=== PATIENT | female | born 1955 | race Caucasian/White ===

== ENCOUNTER 2023-07-04 13:50 | Emergency (ER) | payer SELFPAY ==
[2023-07-04] VITALS (85 sets, daily range): BP systolic 60–166; BP diastolic 41–104; PULSE 87–109; RESP 14–31; TEMP 37.1; O2SAT 81–95; BMI 19.7
--- NOTE | 2023-07-04 14:00 | ED_ITS ---
HPI - General Adult General Chief complaint: Abdominal Pain Stated complaint: NAUSEAU Time Seen by Provider: 07/04/23 14:00 History of Present Illness HPI narrative: Patient says emergency department complaining of nausea and vomiting ongoing for 1 week. Patient states she has been dry heaving. She denies any coffee grounds or hematemesis. She states she has abdominal pain and 3 days her abdomen has swollen and is making her feel short of breath. She has a history of alcoholism. Drinks one 5th daily for the last 3 years. she has not had any alcohol in the last 3 days. She states she has hemorrhoids causing her discomfort.She states she's had some red blood per rectum in the last 3 days. She denies any melena. She denies any history of fall or trauma. Patient denies any fever, or chills. She states that she had pancreatitis 20 years ago. She denies any flank pain, hematuria, dysuria. Says she has not had a bowel movement in the last 3 days. She denies any tremors, or mentation changes. Related Data Allergies Allergy/AdvReac Type Severity Reaction Status Date / Time No Known Drug Allergies Allergy Verified 07/04/23 14:11 Review of Systems ROS Status of ROS 10 or more systems reviewed and unremarkable except as noted in history and below [facility] Social History Smoking status: Current every day smoker Exam Narrative Exam Narrative: Nurses notes and vital signs reviewed and patient is not hypoxic. General: Chronically ill, cachectic,and in no apparent distress. Skin: Warm, dry, no pallor noted. severe Jaundiced Head: Normocephalic, atraumatic. Neck: Supple, non-tender. Eye: Pupils are equal, round and EOMI. Severe scleral icterus. Ears, Nose, Mouth, and Throat: TM clear, no posterior oropharynx erythema or nasal mucosal hypertrophy, uvula is mid-line Oral mucosa is dry Cardiovascular: Regular Rate and Rhythm without murmur, gallop or rub. Respiratory: No accessory muscle use or respiratory distress. Lungs are clear to auscultation, no wheezing, rales or rhonchi Chest Wall: no tenderness Back: No midline thoracic or lumbar vertebral tenderness. No CVA tenderness Musculoskeletal: normal ROM, no calf or popliteal tenderness, no lower extremity edema/swelling GI: Abdomen is soft, distended w ascites, distant bowel sounds. mild epigastric tenderness to palpation. No rebound, guarding, or rigidity noted. Rectal: Nonthrombosed hemorrhoids noted, maroon colored mucus specimen, stool present. Neurological: A&O x4. No cranial nerve dysfunction observed. No truncal ataxia. Moves all extremities. Psychiatric: Cooperative and interactive. Normal mood and affect. Constitutional Vital Signs, click to edit/add: Last Vital Signs Temp 98.7 F 07/04/23 14:01 Pulse 94 H 07/04/23 18:51 Resp 15 07/04/23 18:51 BP 71/54 L 07/04/23 18:51 Pulse Ox 91 L 07/04/23 18:51 O2 Del Method Room Air, Nasal Cannula 07/04/23 17:58 O2 Flow Rate 2 07/04/23 17:58 Course Vital Signs Vital signs: Vital Signs Temperature 98.7 F 07/04/23 14:01 Pulse Rate 109 H 07/04/23 14:01 Respiratory Rate 22 07/04/23 14:01 Blood Pressure 100/50 07/04/23 14:01 Pulse Oximetry 95 07/04/23 14:01 Oxygen Delivery Method Room Air 07/04/23 14:01 Temperature 98.7 F 07/04/23 14:01 Pulse Rate 94 H 07/04/23 18:51 Respiratory Rate 15 07/04/23 18:51 Blood Pressure 71/54 L 07/04/23 18:51 Pulse Oximetry 91 L 07/04/23 18:51 Oxygen Delivery Method Room Air, Nasal Cannula 07/04/23 17:58 Oxygen Delivery Flow Rate 2 07/04/23 17:58 Medical Decision Making MDM Narrative Medical decision making narrative: Patient was given 2 L of normal saline. 40 mEq of potassium by mouth. Remained hypotensive, and banana bag was started and was started on Levophed 12 mcg/m and increased to 14 mcg/min. She remains hypotensive she was started on albumin 25 g IV. Patient was given 50 mEq of potassium bicarbonate by mouth to treat hypokalemia. She had 30 g of lactulose to treat the ammonia. Chest x-rays unremarkable. Brain ct is unremarkable. CT scan abdomen and pelvis demonstrates ascites, cirrhosis, and Ascending Colon wall thickening. gb us Does not show any biliary obstruction.Patient was pancultured, urinalysis is still pending and she was given Rocephin prophylactically. Her lactic acid has normalized. Patient was advised to be transferred to a tertiary care center. However, the patient and the family wanted me to try a local center. He stated they would prefer to go to on license of [facility]. [facility] does have a gastrointestinal specialist. I discussed the patient with the hospitalist and the gastrointestinal specialist Dr. Engel who advised the patient would be best taken care of at a tertiary care center. The patient's preference of Hospital is [facility]. We have placed on a phone call to the blade filer and at the time of this dictation the blade filer has not called back yet. The patient will be signed out at the end of my shift to Dr. Cao awaiting a phone call from [facility] to accept the patient. Patient's hemoglobin is 8.7. I do not have any previous hemoglobin level. A type and cross will be ordered. Medical Records Medical records reviewed: Yes I reviewed the patient's medical records Lab Data Lab results reviewed: Yes I reviewed the patient's lab results Labs: Lab Results 07/04/23 07/04/23 07/04/23 Range/Units 14:22 14:32 14:45 WBC 12.5 H (4.0-11.0) 10^3/uL RBC 2.55 L (4.20-5.40) 10^6/uL Hgb 8.7 L (12.0-16.0) g/dL Hct 24.7 L (36.0-48.0) % MCV 96.9 (81.0-99.0) fL MCH 34.1 H (26.7-34.0) pg MCHC 35.2 (29.9-35.2) g/dL RDW 15.4 H (11.0-15.0) % Plt Count 123 L (150-450) 10^3/uL MPV 12.2 (9.5-13.5) fL Neut % (Auto) 84.2 H (43.0-75.0) % Lymph % (Auto) 4.5 L (20.5-60.0) % [place] % (Auto) 9.9 (1.7-12.0) % Eos % (Auto) 0.4 L (0.9-7.0) % Baso % (Auto) 0.2 (0.2-2.0) % Neut # (Auto) 10.5 H (1.4-6.5) 10^3/uL Lymph # (Auto) 0.6 L (1.2-3.8) 10^3/uL [place] # (Auto) 1.2 H (0.3-0.8) 10^3/uL Eos # (Auto) 0.1 (0.0-0.7) 10^3/uL Baso # (Auto) 0.0 (0.0-0.1) 10^3/uL Abs Immat Gran (auto) 0.10 H (0.00-0.03) 10^3/uL Imm/Tot Granulo (auto) 0.8 H (0.0-0.5) % PT 16.8 H (9.0-11.6) sec INR 1.63 APTT 41.7 H* (22.3-36.2) sec Sodium 130 L (136-145) mmol/L Potassium 3.2 L (3.5-5.1) mmol/L Chloride 90 L (98-107) mmol/L Carbon Dioxide 24.3 (21.0-32.0) mmol/L Anion Gap 18.9 BUN 37.0 H (7.0-18.0) mg/dL Creatinine 0.99 (0.55-1.02) mg/dL Est GFR ( Amer) >60 (>=60) Est GFR (Non-Af Amer) 56 L (>=60) BUN/Creatinine Ratio 37.4 Glucose 83 (74-106) mg/dL Lactate 3.3 H* (0.4-2.0) mmol/L Calcium 8.3 L (8.5-10.1) mg/dL Total Bilirubin 24.4 H* (0.2-1.0) mg/dL AST 176 H (15-37) U/L ALT 35 (14-59) U/L Alkaline Phosphatase 199 H (46-116) U/L Ammonia 50 H* (11-32) umol/L Total Protein 6.6 (6.4-8.2) g/dL Albumin 2.0 L (3.4-5.0) g/dL Globulin 4.6 g/dL Albumin/Globulin Ratio 0.4 Lipase 1114.0 H* (73.0-393.0) U/L Stool Occult Blood Positive A Salicylates <2.8 (<=19.9) mg/dL Acetaminophen <2.0 L (10.0-30.0) ug/mL Ethanol Quant <3 mg/dL 07/04/23 Range/Units 17:42 WBC (4.0-11.0) 10^3/uL RBC (4.20-5.40) 10^6/uL Hgb (12.0-16.0) g/dL Hct (36.0-48.0) % MCV (81.0-99.0) fL MCH (26.7-34.0) pg MCHC (29.9-35.2) g/dL RDW (11.0-15.0) % Plt Count (150-450) 10^3/uL MPV (9.5-13.5) fL Neut % (Auto) (43.0-75.0) % Lymph % (Auto) (20.5-60.0) % [place] % (Auto) (1.7-12.0) % Eos % (Auto) (0.9-7.0) % Baso % (Auto) (0.2-2.0) % Neut # (Auto) (1.4-6.5) 10^3/uL Lymph # (Auto) (1.2-3.8) 10^3/uL [place] # (Auto) (0.3-0.8) 10^3/uL Eos # (Auto) (0.0-0.7) 10^3/uL Baso # (Auto) (0.0-0.1) 10^3/uL Abs Immat Gran (auto) (0.00-0.03) 10^3/uL Imm/Tot Granulo (auto) (0.0-0.5) % PT (9.0-11.6) sec INR APTT (22.3-36.2) sec Sodium (136-145) mmol/L Potassium (3.5-5.1) mmol/L Chloride (98-107) mmol/L Carbon Dioxide (21.0-32.0) mmol/L Anion Gap BUN (7.0-18.0) mg/dL Creatinine (0.55-1.02) mg/dL Est GFR ( Amer) (>=60) Est GFR (Non-Af Amer) (>=60) BUN/Creatinine Ratio Glucose (74-106) mg/dL Lactate 1.8 (0.4-2.0) mmol/L Calcium (8.5-10.1) mg/dL Total Bilirubin (0.2-1.0) mg/dL AST (15-37) U/L ALT (14-59) U/L Alkaline Phosphatase (46-116) U/L Ammonia (11-32) umol/L Total Protein (6.4-8.2) g/dL Albumin (3.4-5.0) g/dL Globulin g/dL Albumin/Globulin Ratio Lipase (73.0-393.0) U/L Stool Occult Blood Salicylates (<=19.9) mg/dL Acetaminophen (10.0-30.0) ug/mL Ethanol Quant mg/dL Imaging Data CT scan - abdomen: Radiologist's impression: Patient Name: SOHAM OSORIO MRN: [facility]:[id number] date: 1955 Sex: F Assigned Patient Location: ED.MAIN Current Patient Location: ER Accession/Order Number: [id number] Exam Date: 07/04/2023 15:05 Report Date: 07/04/2023 15:29 At the request of: COLT ESPINAL Procedure: CT abdomen pelvis wo con EXAM: CT abdomen pelvis wo con HISTORY: abd pain, ascites COMPARISON: None. TECHNIQUE: Axial CT images were obtained of the abdomen and pelvis without intravenous contrast. Multiplanar reconstructions were performed. ABDOMEN/PELVIS FINDINGS: Lower Chest: Bibasilar atelectasis or scarring is present. Liver: The liver is enlarged with severe hepatic steatosis present and heterogeneous density. Biliary/Gallbladder: Unremarkable. Pancreas: Unremarkable. Spleen: Unremarkable. Adrenal Glands: Unremarkable. Kidneys: Unremarkable. Gastrointestinal/Peritoneum: The ascending colon is mildly thickened. There are no dilated loops of bowel. The appendix is unremarkable. There is a moderate volume of ascites. Vascular: Moderate scattered atherosclerotic calcifications are present. Lymph Nodes: No enlarged lymph nodes by CT size criteria. Pelvic Organs: Prior hysterectomy. Bladder: Unremarkable. Bones: No acute osseous abnormality. Soft tissues: Unremarkable. IMPRESSION: 1. Moderate volume of ascites. 2. Severe hepatic steatosis with heterogeneous density of the liver and hepatomegaly. Further evaluation with a multiphase CT or MRI of the liver is recommended. 3. Mild thickening of the ascending colon, possibly due to congestive hepatopathy or infectious/inflammatory colitis. Electronically authenticated by: ABDON BRYSON Date: 07/04/2023 15:29 Critical Care Time Critical Care Time Critical Care Time: Yes Total Critical Care Time: 50 Attestation: Critical Care Time: 50 minutes, critical care time is separate from any procedures that are performed. The following was considered in the determination of critical care but not limited to the level medical decision-making, intensive cardiac and/or respiratory monitor, frequent vital sign monitoring, evaluation of laboratory studies, evaluation of a radiographic studies, oxygen monitoring and constant monitoring. Discharge Plan Discharge Chief Complaint: Abdominal Pain Clinical Impression: Abdominal ascites, Hyperbilirubinemia, Alcoholic cirrhosis, Hematochezia, Hypotension, Acute hepatic failure, Acute hypokalemia Patient Disposition: Still a Patient Referrals: Physician,Non-Staff, MD [Primary Care Provider] - 1 week
--- NOTE | 2023-07-04 14:13 | CT_ITS ---
The [address] [address] Patient Name: SOHAM OSORIO MRN: [id number] date: 1955 Sex: F Assigned Patient Location: ED.MAIN Current Patient Location: Accession/Order Number: [id number] Exam Date: 07/04/2023 15:05 Report Date: 07/04/2023 15:23 At the request of: COLT ESPINAL Procedure: CT head/brain wo con CT head/brain wo con, 07/04/2023 3:05 PM EDT, OH001 INDICATION: mental status acute headache. COMPARISON: None. TECHNIQUE: CT images of the brain from skull base to vertex, including portions of the face and sinuses, were obtained without contrast. Supplemental 2D reformatted images were generated and reviewed as needed. Dose reduction techniques were achieved by using automated exposure control and/or adjustment of mA and/or kV according to patient size and/or use of iterative reconstruction technique. FINDINGS: The ventricles and sulci are prominent consistent with atrophy . There are nonspecific foci of decreased attenuation within the white matter likely representing chronic microvascular ischemic change . No mass effect, acute hemorrhage, midline shift, hydrocephalus or exta-axial fluid collection. The basal cisterns are patent. The calvarium appears intact. The visualized paranasal sinuses are clear. The mastoids are clear. CT/CT head/brain wo con IMPRESSION: No CT evidence of acute intracranial abnormality. Electronically authenticated by: PHAM HENDRICKSON Date: 07/04/2023 15:23
--- NOTE | 2023-07-04 14:16 | CT_ITS ---
The [address] [address] Patient Name: SOHAM OSORIO MRN: [id number] date: 1955 Sex: F Assigned Patient Location: ED.MAIN Current Patient Location: ER Accession/Order Number: [id number] Exam Date: 07/04/2023 15:05 Report Date: 07/04/2023 15:29 At the request of: COLT ESPINAL Procedure: CT abdomen pelvis wo con EXAM: CT abdomen pelvis wo con HISTORY: abd pain, ascites COMPARISON: None. TECHNIQUE: Axial CT images were obtained of the abdomen and pelvis without intravenous contrast. Multiplanar reconstructions were performed. ABDOMEN/PELVIS FINDINGS: Lower Chest: Bibasilar atelectasis or scarring is present. Liver: The liver is enlarged with severe hepatic steatosis present and heterogeneous density. Biliary/Gallbladder: Unremarkable. Pancreas: Unremarkable. Spleen: Unremarkable. Adrenal Glands: Unremarkable. Kidneys: Unremarkable. Gastrointestinal/Peritoneum: The ascending colon is mildly thickened. There are no dilated loops of bowel. The appendix is unremarkable. There is a moderate volume of ascites. Vascular: Moderate scattered atherosclerotic calcifications are present. Lymph Nodes: No enlarged lymph nodes by CT size criteria. Pelvic Organs: Prior hysterectomy. Bladder: Unremarkable. Bones: No acute osseous abnormality. Soft tissues: Unremarkable. CT/CT abdomen pelvis wo con IMPRESSION: 1. Moderate volume of ascites. 2. Severe hepatic steatosis with heterogeneous density of the liver and hepatomegaly. Further evaluation with a multiphase CT or MRI of the liver is recommended. 3. Mild thickening of the ascending colon, possibly due to congestive hepatopathy or infectious/inflammatory colitis. Electronically authenticated by: ABDON BRYSON Date: 07/04/2023 15:29
[2023-07-04] MEDS: 0.9 % SODIUM CHLORIDE 1,000 ML 100 ML IV (14:32)
[2023-07-04] MEDS: ONDANSETRON PF 4 MG/2 ML VIAL IV ×2 (14:33→18:39)
[2023-07-04 15:02] LABS: Basophils Percent Auto 0.2 % (0.2-2.0); Eosinophils Absolute Auto 0.1 10^3/uL (0.0-0.7); Eosinophils Percent Auto 0.4 % (0.9-7.0); Hematocrit 24.7 % (36.0-48.0); Hemoglobin 8.7 g/dL (12.0-16.0); Immature Granulocytes Pct Auto 0.8 % (0.0-0.5); Lymphocytes Absolute Auto 0.6 10^3/uL (1.2-3.8); Lymphocytes Percent Auto 4.5 % (20.5-60.0); Mean Corpuscular HGB Conc 35.2 g/dL (29.9-35.2); Mean Corpuscular Hemoglobin 34.1 pg (26.7-34.0); Mean Corpuscular Volume 96.9 fL (81.0-99.0); Mean Platelet Volume 12.2 fL (9.5-13.5); Monocytes Absolute Auto 1.2 10^3/uL (0.3-0.8); Monocytes Percent Auto 9.9 % (1.7-12.0); Neutrophils Absolute Auto 10.5 10^3/uL (1.4-6.5); Neutrophils Percent Auto 84.2 % (43.0-75.0); Platelet Count 123 10^3/uL (150-450); Red Blood Count 2.55 10^6/uL (4.20-5.40); Red Cell Distribution Width 15.4 % (11.0-15.0); White Blood Count 12.5 10^3/uL (4.0-11.0)
[2023-07-04 15:17] LABS: Alanine Aminotransferase 35 U/L (14-59); Albumin Globulin Ratio 0.4; Alkaline Phosphatase 199 U/L (46-116); Anion Gap 18.9; Aspartate Amino Transferase 176 U/L (15-37); BUN Creatinine Ratio 37.4; Calcium 8.3 mg/dL (8.5-10.1); Carbon Dioxide 24.3 mmol/L (21.0-32.0); Chloride 90 mmol/L (98-107); Estimated GFR (African America >60 (>=60); Estimated GFR (Non-African Ame 56 (>=60); Globulin 4.6 g/dL; Glucose 83 mg/dL (74-106); Potassium 3.2 mmol/L (3.5-5.1); Sodium 130 mmol/L (136-145); Total Protein 6.6 g/dL (6.4-8.2)
[2023-07-04 15:19] LABS: Bilirubin Total 24.4 mg/dL (0.2-1.0); Lactate/Lactic Acid 3.3 mmol/L (0.4-2.0)
[2023-07-04 15:19] LABS: Ammonia 50 umol/L (11-32)
--- NOTE | 2023-07-04 15:41 | ECG_ITS ---
The 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
[2023-07-04] MEDS: POTASSIUM BICARBONATE/CIT 25 MEQ TABLET EFF 50 MEQ PO (16:00)
[2023-07-04 16:07] LABS: Occult Blood Positive
[2023-07-04] MEDS: 0.9 % SODIUM CHLORIDE 1,000 ML 1000 ML IV (16:12)
[2023-07-04 16:33] LABS: Acetaminophen <2.0 ug/mL (10.0-30.0); Ethanol <3 mg/dL; Salicylate <2.8 mg/dL (<=19.9)
--- NOTE | 2023-07-04 16:39 | US_ITS ---
[address] [address] Patient Name: SOHAM OSORIO MRN: [id number] date: 1955 Sex: F Assigned Patient Location: ER Current Patient Location: ER Accession/Order Number: [id number] Exam Date: 07/04/2023 16:40 Report Date: 07/04/2023 18:15 At the request of: COLT ESPINAL Procedure: US right upper quadrant EXAM: US right upper quadrant HISTORY: jaundice COMPARISON: CT of the abdomen and pelvis from the same day. TECHNIQUE: Right upper abdominal ultrasound including grayscale and Doppler imaging. FINDINGS: Right/left pleural space: No effusion. Liver: Hepatomegaly, measuring 20 cm. Echogenic liver with coarse echotexture. Enlarged caudate No definite hepatic mass is noted. Enlarged caudate lobe and recanalized prominent focal vein, better seen on the CT of the abdomen and pelvis, may represent cirrhosis. Gallbladder: No gallbladder wall thickening or pericholecystic fluid. No cholelithiasis. Focal tenderness: No right upper quadrant tenderness. Intrahepatic biliary ducts: No intrahepatic biliary duct dilatation. Extra hepatic biliary duct measures 5 mm. Pancreas: Pancreatic head is unremarkable. The remaining pancreas is not well visualized due to overlying bowel gas. Right kidney: Normal cortical echogenicity. No hydronephrosis. The right kidney measures 10.6 cm in length. Aorta: No aneurysm. Peritoneal space: Moderate ascites. Additional findings: None. US/US right upper quadrant IMPRESSION: Hepatomegaly. Echogenic liver with coarse echotexture, representing hepatic steatosis or liver congestion. Enlarged caudate lobe and recanalized prominent focal vein, better seen on the CT of the abdomen and pelvis, may represent cirrhosis. Multiphasic CT or MRI (liver protocol) is recommended for better evaluation of the liver and hepatic vessels. Hepatofugal portal vein flow, can be due to portal hypertension or congestive liver. No intra or extrahepatic biliary ductal dilatation. Moderate ascites. Electronically authenticated by: CHARLEY WHITTEN Date: 07/04/2023 18:15
[2023-07-04] MEDS: NOREPINEPHRINE BITARTRATE 4 MG in DEXTROSE 5 % IN WATER 250 ML 30.48 MG IV (17:01)
[2023-07-04 17:07] LABS: INR 1.63; Prothrombin Time 16.8 sec (9.0-11.6)
[2023-07-04 17:10] LABS: Partial Thromboplastin Time 41.7 sec (22.3-36.2)
[2023-07-04 18:07] LABS: Lactate/Lactic Acid 1.8 mmol/L (0.4-2.0)
[2023-07-04] MEDS: LACTULOSE 10 GM/15 ML SOLUTION 30 GM PO (18:40)
[2023-07-04] MEDS: ALBUMIN HUMAN 25 GM/100 ML PREMIX IV (18:40)
[2023-07-04 19:34] LABS: Clarity Urine CLEAR (CLEAR); Color Urine DK. ORANGE (YELLOW)
[2023-07-04 19:37] LABS: Urine Microscopic Indicated YES
[2023-07-04] MEDS: METRONIDAZOLE/SODIUM CHLORIDE 500 MG/100 ML PREMIX 100 MG IV (19:41)
[2023-07-04 19:47] LABS: Amorphous Sediment Urine MODERATE; Bacteria Urine LARGE #/HPF (NONE SEEN); Cast Seen? NONE SEEN #/LPF (NONE SEEN); Crystals Seen? Seen #/HPF (None Seen); Mucus Urine NONE SEEN (NONE SEEN); RBC Urine 0-2 #/HPF (0-2); Squamous Epithelial Cell Urine FEW #/LPF (NONE/RARE); Urine Culture Indicated YES
--- NOTE | 2023-07-04 20:02 | ED_ITS ---
HPI - Abdominal Pain General Chief Complaint: Abdominal Pain Stated Complaint: NAUSEAU Time Seen by Provider: 07/04/23 14:00 Source: patient Mode of arrival: Wheelchair Limitations: no limitations History of Present Illness HPI narrative: This 67-year-old female was signed out to me at shift change. She presents emergency department for evaluation of abdominal pain with abdominal distention and ascites. She is found to be in acute liver failure. At the time of sign out we're waiting to hear from from medical for transfer. Prior to Dr. Moscoso leaving she spoke to the accepting physician at [facility]. Patient was seen and evaluated. She is awake and alert. She denies any nausea at this time. She is currently on levofed which was increased due to persistant hypotension. I also ordered a type and screen and a unit of PRBCs due to her hypotension, positive occult blood in her stool and anemia. Related Data Allergies Allergy/AdvReac Type Severity Reaction Status Date / Time No Known Drug Allergies Allergy Verified 07/04/23 14:11 [facility] Social History Smoking status: Current every day smoker Exam Constitutional Vital Signs, click to edit/add: Last Vital Signs Temp 98.7 F 07/04/23 14:01 Pulse 96 H 07/04/23 21:06 Resp 25 H 07/04/23 21:06 BP 60/41 L 07/04/23 21:06 Pulse Ox 91 L 07/04/23 21:06 O2 Del Method Room Air, Nasal Cannula 07/04/23 17:58 O2 Flow Rate 2 07/04/23 17:58 Course Vital Signs Vital signs: Vital Signs Temperature 98.7 F 07/04/23 14:01 Pulse Rate 109 H 07/04/23 14:01 Respiratory Rate 22 07/04/23 14:01 Blood Pressure 100/50 07/04/23 14:01 Pulse Oximetry 95 07/04/23 14:01 Oxygen Delivery Method Room Air 07/04/23 14:01 Temperature 98.7 F 07/04/23 14:01 Pulse Rate 96 H 07/04/23 21:06 Respiratory Rate 25 H 07/04/23 21:06 Blood Pressure 60/41 L 07/04/23 21:06 Pulse Oximetry 91 L 07/04/23 21:06 Oxygen Delivery Method Room Air, Nasal Cannula 07/04/23 17:58 Oxygen Delivery Flow Rate 2 07/04/23 17:58 MDM - Abdominal Pain Lab Data Labs: Lab Results 07/04/23 07/04/23 07/04/23 Range/Units 14:22 14:32 14:45 WBC 12.5 H (4.0-11.0) 10^3/uL RBC 2.55 L (4.20-5.40) 10^6/uL Hgb 8.7 L (12.0-16.0) g/dL Hct 24.7 L (36.0-48.0) % MCV 96.9 (81.0-99.0) fL MCH 34.1 H (26.7-34.0) pg MCHC 35.2 (29.9-35.2) g/dL RDW 15.4 H (11.0-15.0) % Plt Count 123 L (150-450) 10^3/uL MPV 12.2 (9.5-13.5) fL Neut % (Auto) 84.2 H (43.0-75.0) % Lymph % (Auto) 4.5 L (20.5-60.0) % [place] % (Auto) 9.9 (1.7-12.0) % Eos % (Auto) 0.4 L (0.9-7.0) % Baso % (Auto) 0.2 (0.2-2.0) % Neut # (Auto) 10.5 H (1.4-6.5) 10^3/uL Lymph # (Auto) 0.6 L (1.2-3.8) 10^3/uL [place] # (Auto) 1.2 H (0.3-0.8) 10^3/uL Eos # (Auto) 0.1 (0.0-0.7) 10^3/uL Baso # (Auto) 0.0 (0.0-0.1) 10^3/uL Abs Immat Gran (auto) 0.10 H (0.00-0.03) 10^3/uL Imm/Tot Granulo (auto) 0.8 H (0.0-0.5) % PT 16.8 H (9.0-11.6) sec INR 1.63 APTT 41.7 H* (22.3-36.2) sec Sodium 130 L (136-145) mmol/L Potassium 3.2 L (3.5-5.1) mmol/L Chloride 90 L (98-107) mmol/L Carbon Dioxide 24.3 (21.0-32.0) mmol/L Anion Gap 18.9 BUN 37.0 H (7.0-18.0) mg/dL Creatinine 0.99 (0.55-1.02) mg/dL Est GFR ( Amer) >60 (>=60) Est GFR (Non-Af Amer) 56 L (>=60) BUN/Creatinine Ratio 37.4 Glucose 83 (74-106) mg/dL Lactate 3.3 H* (0.4-2.0) mmol/L Calcium 8.3 L (8.5-10.1) mg/dL Total Bilirubin 24.4 H* (0.2-1.0) mg/dL AST 176 H (15-37) U/L ALT 35 (14-59) U/L Alkaline Phosphatase 199 H (46-116) U/L Ammonia 50 H* (11-32) umol/L Total Protein 6.6 (6.4-8.2) g/dL Albumin 2.0 L (3.4-5.0) g/dL Globulin 4.6 g/dL Albumin/Globulin Ratio 0.4 Lipase 1114.0 H* (73.0-393.0) U/L Urine Color (YELLOW) Urine Clarity (CLEAR) Urine pH (5.0-9.0) Ur Specific [place] (1.005-1.025) Urine Protein (NEG/TRACE) mg/dL Urine Glucose (UA) (NEGATIVE) mg/dL Urine Ketones (NEGATIVE) mg/dL Urine Occult Blood (NEGATIVE) Urine Nitrite (NEGATIVE) Urine Bilirubin (NEGATIVE) Urine Urobilinogen (0.2-1.0) EU/dL Ur Leukocyte Esterase (NEGATIVE) Urine RBC (0-2) #/HPF Urine WBC (NONE SEEN) #/HPF Ur Squamous Epith Cells (NONE/RARE) #/LPF Urine Crystals (None Seen) #/HPF Amorphous Sediment Urine Bacteria (NONE SEEN) #/HPF Urine Casts (NONE SEEN) #/LPF Urine Mucus (NONE SEEN) Ur Culture Indicated? Stool Occult Blood Positive A Salicylates <2.8 (<=19.9) mg/dL Acetaminophen <2.0 L (10.0-30.0) ug/mL Ethanol Quant <3 mg/dL Blood Type Antibody Screen 07/04/23 07/04/23 07/04/23 Range/Units 17:42 18:16 19:24 WBC (4.0-11.0) 10^3/uL RBC (4.20-5.40) 10^6/uL Hgb (12.0-16.0) g/dL Hct (36.0-48.0) % MCV (81.0-99.0) fL MCH (26.7-34.0) pg MCHC (29.9-35.2) g/dL RDW (11.0-15.0) % Plt Count (150-450) 10^3/uL MPV (9.5-13.5) fL Neut % (Auto) (43.0-75.0) % Lymph % (Auto) (20.5-60.0) % [place] % (Auto) (1.7-12.0) % Eos % (Auto) (0.9-7.0) % Baso % (Auto) (0.2-2.0) % Neut # (Auto) (1.4-6.5) 10^3/uL Lymph # (Auto) (1.2-3.8) 10^3/uL [place] # (Auto) (0.3-0.8) 10^3/uL Eos # (Auto) (0.0-0.7) 10^3/uL Baso # (Auto) (0.0-0.1) 10^3/uL Abs Immat Gran (auto) (0.00-0.03) 10^3/uL Imm/Tot Granulo (auto) (0.0-0.5) % PT (9.0-11.6) sec INR APTT (22.3-36.2) sec Sodium (136-145) mmol/L Potassium (3.5-5.1) mmol/L Chloride (98-107) mmol/L Carbon Dioxide (21.0-32.0) mmol/L Anion Gap BUN (7.0-18.0) mg/dL Creatinine (0.55-1.02) mg/dL Est GFR ( Amer) (>=60) Est GFR (Non-Af Amer) (>=60) BUN/Creatinine Ratio Glucose (74-106) mg/dL Lactate 1.8 (0.4-2.0) mmol/L Calcium (8.5-10.1) mg/dL Total Bilirubin (0.2-1.0) mg/dL AST (15-37) U/L ALT (14-59) U/L Alkaline Phosphatase (46-116) U/L Ammonia (11-32) umol/L Total Protein (6.4-8.2) g/dL Albumin (3.4-5.0) g/dL Globulin g/dL Albumin/Globulin Ratio Lipase (73.0-393.0) U/L Urine Color Dk. orange (YELLOW) Urine Clarity Clear (CLEAR) Urine pH (5.0-9.0) Ur Specific [place] 1.010 (1.005-1.025) Urine Protein (NEG/TRACE) mg/dL Urine Glucose (UA) (NEGATIVE) mg/dL Urine Ketones (NEGATIVE) mg/dL Urine Occult Blood (NEGATIVE) Urine Nitrite (NEGATIVE) Urine Bilirubin (NEGATIVE) Urine Urobilinogen (0.2-1.0) EU/dL Ur Leukocyte Esterase (NEGATIVE) Urine RBC 0-2 (0-2) #/HPF Urine WBC 5-10 A (NONE SEEN) #/HPF Ur Squamous Epith Cells Few A (NONE/RARE) #/LPF Urine Crystals Seen A (None Seen) #/HPF Amorphous Sediment Moderate Urine Bacteria Large A (NONE SEEN) #/HPF Urine Casts None seen (NONE SEEN) #/LPF Urine Mucus None seen (NONE SEEN) Ur Culture Indicated? Yes Stool Occult Blood Salicylates (<=19.9) mg/dL Acetaminophen (10.0-30.0) ug/mL Ethanol Quant mg/dL Blood Type A Positive Antibody Screen Negative Discharge Plan Discharge Patient Disposition: Still a Patient
[2023-07-04] MEDS: 0.9 % SODIUM CHLORIDE 500 ML IV (21:15)
--- NOTE | 2023-07-04 21:50 | PC.NURSE ---
bedside report given to [facility] staff and provided with transfer packet. phone report called by this RN to schuyler Araya, verbalized understanding of report and denies any further needs or questions for this RN. patient transported with superintendent pressure, 3L NC o2, levophed infusing at 25mcg, and 500ml bolus of NS infusing. patient in possession of cell phone and glasses at time of transfer.
--- NOTE | 2023-07-08 09:39 | PC.NURSE ---
07/08/23 0992 pt remains at [facility] in [place] called and spoke to pt nurse faxed c+s results to [facility] as directed. nurse aware of pt Uti dx. Galina Lazo RN
== END 2023-07-04 21:56 | disposition short-term general hospital (02) ==
PROVIDERS: Emergency Medicine; Emergency Provider Emergency Medicine
DX: K70.31 Alcoholic cirrhosis of liver with ascites (principal); E87.6 Hypokalemia; E80.6 Other disorders of bilirubin metabolism; K92.1 Melena; I95.9 Hypotension, unspecified; K72.90 Hepatic failure, unspecified without coma; R64 Cachexia; F10.20 Alcohol dependence, uncomplicated; K64.9 Unspecified hemorrhoids; D64.9 Anemia, unspecified; F17.210 Nicotine dependence, cigarettes, uncomplicated; Z68.1 Body mass index [BMI] 19.9 or less, adult; Z90.710 Acquired absence of both cervix and uterus; R82.89 Other abnormal findings on cytological and histological examination of urine
CPT/HCPCS: 36415; 70450; 74176; 76705; 80053; 80179; 80320; 80329; 81001; 82140; 83605; 83690; 85025; 85610; 85730; 86850; 86900; 86901; 86920; 87040; 87086; 87150; 87186; 87507; 93005; 96361; 96365; 96366; 96368; 96374; 96376; 99291; G0328; P9047